=== PATIENT | male | born 1975 | race Caucasian/White ===

== ENCOUNTER 2023-09-03 10:58 | Emergency (ER) | payer OTHER ==
[2023-09-03 11:03] VITALS: BP 130/77; PULSE 82; RESP 18; TEMP 98.5; BMI 29.0
[2023-09-03] MEDS ORDERED: METHOCARBAMOL 500 MG TABLET PO ONE (12:13)
[2023-09-03] MEDS ORDERED: LIDOCAINE 5% TOPICAL PATCH TP ONE (12:13)
[2023-09-03] MEDS ORDERED: ACETAMINOPHEN 1000 MG/100 ML BAG IVPB ONE (12:13)
[2023-09-03] MEDS ORDERED: LIDOCAINE 4% PATCH TP ONE (12:58)
[2023-09-03] MEDS ORDERED: ACETAMINOPHEN INJECTION 100 ML IVPB ONE (12:58)
[2023-09-03] MEDS ORDERED: METHOCARBAMOL 500 MG TABLET ONE (12:58)
[2023-09-03 13:17] LABS: URINE APPEARANCE CLEAR; URINE BILIRUBIN NEGATIVE (NEGATIVE); URINE COLOR YELLOW; URINE GLUCOSE (UA) NEGATIVE (NEGATIVE); URINE KETONE NEGATIVE (NEGATIVE); URINE LEUK ESTERASE NEGATIVE (NEGATIVE); URINE NITRITE NEGATIVE (NEGATIVE); URINE PROTEIN NEGATIVE (NEGATIVE); URINE UROBILINOGEN 0.2 mg/dL (0.2-1.0)
[2023-09-03 13:20] LABS: BASO % 1.1 % (0-2.0); EOS % 3.7 % (0-4.5); HEMATOCRIT 43.9 % (35.4-49); HEMOGLOBIN 14.2 GM/dL (11.7-16.9); LYMPH % 44.6 % (8-40); MCH 23.5 pg (25.7-33.7); MCHC 32.3 g/dl (32.0-35.9); MEAN CELL VOLUME 72.6 fl (80-96); MEAN PLT VOLUME 7.8 fl (7.5-11.1); MONO % 7.5 % (3.8-10.2); NEUT % 43.1 % (42.8-82.8); PLATELET COUNT 191 10^3/uL (134-434); RBC 6.04 M/mm3 (4.00-5.60); RDW 14.3 % (11.9-15.9); WHITE BLOOD COUNT 3.4 K/mm3 (4.0-10.0)
[2023-09-03 13:46] LABS: POTASSIUM 4.3 mmol/L (3.5-5.1)
[2023-09-03 13:48] LABS: ALBUMIN 4.1 g/dl (3.4-5.0); BLOOD UREA NITROGEN 13.1 mg/dL (7-18); CALCIUM 9.2 mg/dL (8.5-10.1)
[2023-09-03 13:51] LABS: CREATININE 0.9 mg/dL (0.55-1.3)
[2023-09-03] MEDS ORDERED: KETOROLAC TROMETHAMINE 15 MG/ML VIAL IVPUSH ONE (13:52)
[2023-09-03 13:53] LABS: BILIRUBIN,TOTAL 0.7 mg/dL (0.2-1); TOT PROT 7.3 g/dl (6.4-8.2)
[2023-09-03] MEDS ORDERED: KETOROLAC TROMETHAMINE 15 MG/ML VIAL ONE (15:33)
== END 2023-09-03 15:43 | disposition home or self-care (01) ==
LOC: JER 10:58
PROC: 3E033NZ Introduction of Analgesics, Hypnotics, Sedatives into Peripheral Vein, Percutaneous Approach (ICD-10-PCS; principal; 2023-09-03)
PROC: 3E0333Z Introduction of Anti-inflammatory into Peripheral Vein, Percutaneous Approach (ICD-10-PCS; 2023-09-03)
DX: M54.6 Pain in thoracic spine (principal); R30.9 Painful micturition, unspecified; R82.998 Other abnormal findings in urine; R10.9 Unspecified abdominal pain; N28.89 Other specified disorders of kidney and ureter
CPT/HCPCS: 36415; 71046-TC-FY; 74176-TC; 80053; 81003; 85025; 87086; 99285-25

== ENCOUNTER 2024-08-18 08:15 | Day surgery (SDC) | payer OTHER ==
[2024-08-15 12:45] VITALS: BMI 29.0
[2024-08-18 09:55] VITALS: TEMP 97.4
[2024-08-18 10:01] VITALS: BP 117/68; PULSE 75; RESP 18
== END 2024-08-18 10:15 | disposition home or self-care (01) ==
LOC: FASU-ENDO 08:15
PROVIDERS: ATTEND Internal Medicine Gastroenterology
PROC: 0DJD8ZZ Inspection of Lower Intestinal Tract, Via Natural or Artificial Opening Endoscopic (ICD-10-PCS; principal; 2024-08-18 09:31)
DX: Z12.11 Encounter for screening for malignant neoplasm of colon (principal)